=== PATIENT | male | born 1945 | race Hispanic/Latino ===

== ENCOUNTER 2016-11-25 13:56 | Observation (INO) | payer MEDICARE ==
[2016-11-25 14:04] VITALS: BMI 27.9
[2016-11-25] MEDS ORDERED: Nitroglycerin 2% Ointment Foilpak UD TOP STA (14:15)
--- NOTE | 2016-11-25 14:16 | ED PDOC ---
Arrival/HPI - General Time Seen by Provider: 11/25/16 13:57 Historian: Patient - History of Present Illness Narrative History of Present Illness (Text): 11/25/16 14:05 Robert Thompson is a 71 year old male, whose past medical history includes CAD/[place] in 1997 with stents, hypertension, and asthma, presents to the emergency department complaining of chest pain since today morning. States he started experiencing some mild chest pain whenever bending forward which eventually became constant. Reports he took 2 nitros at home for transient relief. States he developed some lightheadedness and dizziness after taking nitro, but has resolved now. States that pain recurred again on exertion, which prompted him to present to emergency department. Patient was given nitro spray en route by EMT for symptomatic relief. States pain is worsened with inspiration. Denies any fever, chills, shortness of breath, nausea, vomiting, diarrhea, urinary symptoms or any other complaints at this time. PMD: Dr. Santana Glove Turner And Former Automatic: Dr. Fish Time/Duration: Other (earlier today ) Symptom Course: Improving Severity Level: Mild Context: Home Past Medical History - Provider Review Nursing Documentation Reviewed: Yes - Cardiac Hx Pacemaker: No - Pulmonary Hx Respiratory Disorders: Yes Hx Bronchitis: Yes - Neurological Hx Paralysis: No - HEENT Hx HEENT Disorder: Yes (glasses) - Renal Hx Renal Disorder: No - Endocrine/Metabolic Hx Endocrine Disorders: No - Hematological/Oncological Hx Blood Transfusions: No Hx Blood Transfusion Reaction: No - Integumentary Hx Dermatological Disorder: No - Musculoskeletal/Rheumatological Hx Musculoskeletal Disorders: Yes (DDD, slipped disk) - Gastrointestinal Hx Gastrointestinal Disorders: Yes Hx Gastroesophageal Reflux: Yes Hx Liver Failure: (fatty liver 2003) - Genitourinary/Gynecological Hx Genitourinary Disorders: No - Psychiatric Hx Emotional Abuse: No Hx Physical Abuse: No Hx Substance Use: No - Past Surgical History Past Surgical History: No Previous - Surgical History Hx Cardiac Catheterization: Yes Hx Coronary Stent: Yes (x2) Other/Comment: nasal surgery - Anesthesia Hx Anesthesia Reactions: No Hx Malignant Hyperthermia: No - Suicidal Assessment Feels Threatened In Home Enviroment: No Family/Social History - Physician Review Nursing Documentation Reviewed: Yes Family/Social History: No Known Family HX Smoking Status: Never Smoked Hx Alcohol Use: No Hx Substance Use: No Hx Substance Use Treatment: No Allergies/Home Meds Allergies/Adverse Reactions: Allergies No Known Allergies Allergy (Verified 11/25/16 14:03) Home Medications: Home Meds Medication Instructions Recorded Confirmed Atorvastatin [Lipitor] 10 mg PO QAM 01/30/13 11/25/16 Metoprolol Succinate [Metoprolol 100 mg PO QAM 01/30/13 11/25/16 Succinate Xl] ALPRAZolam [Xanax] 1 mg PO HS PRN 11/25/16 11/25/16 Aspirin [Aspirin EC] 325 mg PO DAILY 11/25/16 11/25/16 Fluticasone/Vilanterol [Breo 0 inh INH DAILY 11/25/16 11/25/16 Ellipta 100-25 Mcg INH] Gabapentin [Neurontin] 300 mg PO BID 11/25/16 11/25/16 tiZANidine [Zanaflex] 4 mg PO DAILY 11/25/16 11/25/16 Review of Systems - Physician Review All systems were reviewed & negative as marked: Yes - Review of Systems Constitutional: Normal. absent: Fatigue, Fevers Respiratory: Normal. absent: SOB, Sputum Cardiovascular: Chest Pain. absent: Palpitations Gastrointestinal: Normal. absent: Abdominal Pain, Diarrhea, Nausea, Vomiting Neurological: Normal. absent: Headache, Dizziness Psychiatric: Normal Physical Exam Vital Signs Reviewed: Yes Vital Signs Temp Pulse Resp BP Pulse Ox 11/25/16 15:44 61 16 120/62 99 11/25/16 14:07 98.1 F 64 15 140/67 98 Temperature: Afebrile Blood Pressure: Normal Pulse: Regular Respiratory Rate: Normal Appearance: Positive for: Well-Appearing, Non-Toxic, Comfortable Pain Distress: None Mental Status: Positive for: Alert and Oriented X 3 - Systems Exam Head: Present: Atraumatic, Normocephalic Pupils: Present: PERRL Conjunctiva: Present: Normal Mouth: Present: Moist Mucous Membranes Pharnyx: Present: Normal. No: ERYTHEMA, EXUDATE, TONSILS ENLARGED Neck: Present: Normal Range of Motion Respiratory/Chest: Present: Clear to Auscultation, Good Air Exchange. No: Respiratory Distress, Accessory Muscle Use Cardiovascular: Present: Regular Rate and Rhythm, Normal S1, S2. No: Murmurs Abdomen: Present: Normal Bowel Sounds. No: Tenderness, Distention, Peritoneal Signs Back: Present: Normal Inspection Upper Extremity: Present: Normal Inspection. No: Cyanosis, Edema Lower Extremity: Present: Normal Inspection. No: Edema Neurological: Present: GCS=15, CN II-XII Intact, Speech Normal, Motor Func Grossly Intact, Normal Sensory Function Skin: Present: Warm, Dry, Normal Color. No: Rashes Psychiatric: Present: Alert, Oriented x 3, Normal Insight, Normal Concentration Medical Decision Making ED Course and Treatment: 11/25/16 14:18 Impression: A 71 year old male who presents to the emergency department complaining of chest pain. Denies any shortness of breath. Differential Diagnosis included but are not limited to: ACS vs. PE vs. muscular pain vs anxiety Plan: -- EKG -- Labs, cardiac enzymes -- CXR -- Nitro -- Urinalysis -- Reassess and disposition Progress Notes: 11/25/16 14:31 EKG interpreted by me: NSR @ 65 bpm. normal axis. normal interval. 11/25/16 16:52 CXR: nad Patient with noted history, including CAD/[place] with multiple types of pain, relieved with nitro; initial EKG is unremarkable as are CE and other labs, except elevated d-dimer. CTA of the chest was negative for PE. He took asa already today and no active pain now; given high risk history, he will need further observation on tele. Discussed with Dr. Fish for consult and Dr. Molina for pacement on the hospitalist service. - Lab Interpretations Lab Results: 11/25/16 14:10 11/25/16 14:10 Lab Results 11/25/16 14:10: Sodium 137, Potassium 4.0, Chloride 100, Carbon Dioxide 25, Anion Gap 16, BUN 16, Creatinine 0.9, Est GFR ( Amer) > 60, Est GFR (Non- Af Amer) > 60, Random Glucose 112 H, Calcium 9.1, Magnesium 2.1, Total Bilirubin 1.0, AST 36, ALT 38, Alkaline Phosphatase 81, Lactate Dehydrogenase 482, Total Creatine Kinase 80, Troponin I < 0.01, NT-Pro-B Natriuret Pep 65.0, Total Protein 7.2, Albumin 4.4, Globulin 2.7, Albumin/Globulin Ratio 1.6, Lipase 81 11/25/16 14:10: PT 11.0, INR 1.02, APTT 26.1, D-Dimer, Quantitative 0.80 H 11/25/16 14:10: WBC 7.2, RBC 4.46, Hgb 14.9, Hct 42.5, MCV 95.3, MCH 33.4, MCHC 35.1, RDW 12.9, Plt Count 174, MPV 10.1, Gran % 82.2 H, Lymph % (Auto) 9.6 L, [place] % (Auto) 7.1 H, Eos % (Auto) 0.7 L, Baso % (Auto) 0.4, Gran # 5.92, Lymph # 0.7 L, [place] # 0.5, Eos # 0.1, Baso # 0.03 - RAD Interpretation Radiology Orders: 11/25/16 14:05 CHEST PORTABLE [RAD] Stat 11/25/16 15:01 ANGIO CHEST PE PROTOCOL [CT] Stat - Medication Orders Current Medication Orders: Discontinued Medications Iodixanol (Visipaque 320 Mg/Ml 100 Ml) Confirm Administered Dose 100 ml IV .STK- MED ONE Stop: 11/25/16 15:12 Nitroglycerin (Nitro-Bid 2% Oint) 1 ea TOP STAT STA Stop: 11/25/16 14:16 Last Admin: 11/25/16 14:42 Dose: 1 ea - Scribe Statement The provider has reviewed the documentation as recorded by the Kacey Hebert Provider Attestation: All medical record entries made by the Garimaibparag were at my direction and personally dictated by me. I have reviewed the chart and agree that the record accurately reflects my personal performance of the history, physical exam, medical decision making, and the department course for this patient. I have also personally directed, reviewed, and agree with the discharge instructions and disposition. Disposition/Present on Arrival - Present on Arrival Any Indicators Present on Arrival: No History of DVT/PE: No History of Uncontrolled Diabetes: No Urinary Catheter: No History Surgical Site Infection Following: None - Disposition Have Diagnosis and Disposition been Completed?: Yes Diagnosis: Chest pain Disposition: HOSPITALIZED Disposition Time: 15:50 Patient Plan: Observation, Telemetry Condition: FAIR Discharge Instructions (ExitCare): Chest Pain (ED) Referrals: Chau Santana MD [Primary Care Provider] - Follow up with primary
[2016-11-25 14:47] LABS: BASO # 0.03 K/mm3 (0.0-2.0); BASO % 0.4 % (0.0-3.0); EOS # 0.1 (0.0-0.7); EOS % 0.7 % (1.5-5.0); GRAN # 5.92 (1.4-6.5); GRAN % 82.2 % (50.0-68.0); HEMOGLOBIN 14.9 g/dL (14.0-18.0); LYMPH # 0.7 (1.2-3.4); LYMPH % 9.6 % (22.0-35.0); MEAN CELL VOLUME 95.3 fl (80.0-105.0); MEAN CORPUSCULAR HEMOGLOBIN 33.4 pg (25.0-35.0); MEAN CORPUSCULAR HGB CONC 35.1 g/dl (31.0-37.0); MEAN PLATELET VOLUME 10.1 fl (7.0-11.0); MONO # 0.5 (0.1-0.6); MONO % 7.1 % (1.0-6.0); PLATELET COUNT 174 10^3/uL (120.0-450.0); RBC 4.46 10^6/uL (3.5-6.1); RED CELL DISTRIBUTION WIDTH 12.9 % (11.5-14.5); WHITE BLOOD COUNT 7.2 10^3/ul (4.5-11.0)
--- NOTE | 2016-11-25 14:52 | RAD ---
HISTORY: chest pain COMPARISON: 03/31/2016 FINDINGS: LUNGS: No active pulmonary disease. PLEURA: No significant pleural effusion identified, no pneumothorax apparent. CARDIOVASCULAR: Mild cardiomegaly -similar-appearing OSSEOUS STRUCTURES: Diffuse thoracic spondylosis VISUALIZED UPPER ABDOMEN: Normal. OTHER FINDINGS: None. IMPRESSION: No interval active disease. Mild cardiomegaly as before
[2016-11-25 14:56] LABS: ALB/GLOB RATIO 1.6 (1.1-1.8); ALBUMIN 4.4 g/dL (3.0-4.8); ALT/SGPT 38 U/L (7-56); AST/SGOT 36 U/L (15-59); BLOOD UREA NITROGEN 16 mg/dL (7-21); CALCIUM 9.1 mg/dL (8.4-10.5); GFR AFRICAN-AMERICAN > 60; GFR NON-AFRICAN AMERICAN > 60; LIPASE 81 U/L (23-300); MAGNESIUM 2.1 mg/dL (1.7-2.2)
[2016-11-25 15:00] LABS: D DIMER 0.8 mg/L FEU (0-0.50); INR 1.02 (0.93-1.08); PARTIAL THROMBOPLASTIN TIME 26.1 Seconds (23.7-30.8)
[2016-11-25 15:09] LABS: TROPONIN I < 0.01 ng/mL
[2016-11-25] MEDS ORDERED: Iodixanol 320 MG/ML 100 ML BOTTLE IV ONE (15:11)
[2016-11-25 15:45] VITALS: O2SAT 99
--- NOTE | 2016-11-25 17:23 | CT ---
PROCEDURE: CT Chest with contrast (Pulmonary Angiogram) HISTORY: chest pain - r/o PE COMPARISON: None available. TECHNIQUE: Axial computed tomography images were obtained of the chest in the pulmonary arterial phase of enhancement. Coronal and sagittal reformatted images were created and reviewed. Intravenous contrast dose: 100 cc of Visipaque Radiation dose: Total exam DLP = 769 mGy-cm. This CT exam was performed using one or more of the following dose reduction techniques: Automated exposure control, adjustment of the mA and/or kV according to patient size, and/or use of iterative reconstruction technique. FINDINGS: PULMONARY ARTERIES: Unremarkable. No pulmonary embolism. AORTA: No acute findings. No thoracic aortic aneurysm. LUNGS: Unremarkable. No nodule, mass or pulmonary consolidation. PLEURAL SPACES: Unremarkable. No effusion or pneuomothorax. HEART: Unremarkable. No cardiomegaly. No significant pericardial effusion. LYMPH NODES: No lymphadenopathy. BONES, CHEST WALL: Unremarkable. No fracture or destructive lesion OTHER FINDINGS: Unremarkable. IMPRESSION: Unremarkable CT pulmonary angiogram. No pulmonary embolus.
--- NOTE | 2016-11-25 18:21 | CP.PCM.HP ---
History of Present Illness - History of Present Illness History of Present Illness: chest pain. Patient seen and examined in ER. Patient's by the bedside. patient is alert, awake and oriented. Currently not in any acute distress. Patient is a 71-year-old with a past medical history of coronary artery disease , stent placement in 1997, asthma/COPD, musculoskeletal disorder is admitted with chest pain. Pain is located in the mid chest area. the pain started around 10:00 this morning while he was bending down. Pain is also exacerbated by climbing stairs. Non-radiating. Not associated with nausea, vomiting, palpitation. Denies any fevers, chills. Denies any cough, shortness of breath. Denies any abdominal discomfort. Denies any urinary, bowel complaints. Denies any leg edema. The patient Nitroglycerin tablet this morning with some relief. Pain is on and off. The patient was seen by ornamental metal erector apprentice Dr. Orellana yesterday. The patient had exertional pain about few weeks ago. The patient took Nitroglycerin tablet few weeks ago. Past medical history; Stent placement in 1997 Back spasms Hypertension Asthma/COPD History of transient global amnesia 4 years ago Medications; reviewed Allergies; none Social history; denies history of smoking Denies alcohol abuse denies drug abuse Past surgical history; Sinus surgery DNS surgery in 2014 patient ambulates at home. Independent with daily activities. PMD; Dr. parkinson. Cardiology; Dr. Orellana Pulmonary; Dr. Garcia Pain management; Dr. Robert Rosado Present on Admission - Present on Admission Any Indicators Present on Admission: No History of DVT/PE: No History of Uncontrolled Diabetes: No Urinary Catheter: No Decubitus Ulcer Present: No Review of Systems - Constitutional Constitutional: absent: Chills - EENT Eyes: absent: Blurred Vision Nose/Mouth/Throat: absent: Nasal Congestion - Cardiovascular Cardiovascular: Chest Pain, Chest Pain with Activity. absent: Edema - Respiratory Respiratory: absent: Cough, Dyspnea, Dyspnea on Exertion - Gastrointestinal Gastrointestinal: absent: Abdominal Pain, Nausea, Vomiting - Genitourinary Genitourinary: absent: Change in Urinary Stream - Musculoskeletal Musculoskeletal: absent: Abnormal Gait - Neurological Neurological: absent: Abnormal Gait, Confusion, Focal Weakness, Weakness - Psychiatric Psychiatric: absent: Anxiety, Depression - Hematologic/Lymphatic Hematologic: absent: Easy Bleeding, Easy Bruising Past Patient History - Past Social History Smoking Status: Never Smoked - CARDIAC Hx Pacemaker: No - PULMONARY Hx Respiratory Disorders: Yes Hx Bronchitis: Yes - NEUROLOGICAL Hx Paralysis: No - HEENT Hx HEENT Problems: Yes (glasses) - RENAL Hx Chronic Kidney Disease: No - ENDOCRINE/METABOLIC Hx Endocrine Disorders: No - HEMATOLOGICAL/ONCOLOGICAL Hx Blood Transfusions: No Hx Blood Transfusion Reaction: No - INTEGUMENTARY Hx Dermatological Problems: No - MUSCULOSKELETAL/RHEUMATOLOGICAL Hx Musculoskeletal Disorders: Yes (DDD, slipped disk) - GASTROINTESTINAL Hx Gastrointestinal Disorders: Yes Hx Gastroesophageal Reflux: Yes Hx Liver Failure: (fatty liver 2003) - GENITOURINARY/GYNECOLOGICAL Hx Genitourinary Disorders: No - PSYCHIATRIC Hx Emotional Abuse: No Hx Physical Abuse: No Hx Substance Use: No - SURGICAL HISTORY Hx Cardiac Catheterization: Yes Hx Coronary Stent: Yes (x2) Other/Comment: nasal surgery - ANESTHESIA Hx Anesthesia Reactions: No Hx Malignant Hyperthermia: No Meds Allergies/Adverse Reactions: Allergies Allergy/AdvReac Type Severity Reaction Status Date / Time No Known Allergies Allergy Verified 11/25/16 14:03 Physical Exam - Constitutional Appears: Well, Non-toxic - Head Exam Head Exam: NORMAL INSPECTION - Eye Exam Eye Exam: Normal appearance - ENT Exam ENT Exam: Mucous Membranes Moist - Respiratory Exam Respiratory Exam: Clear to Auscultation Bilateral, NORMAL BREATHING PATTERN - Cardiovascular Exam Cardiovascular Exam: REGULAR RHYTHM - GI/Abdominal Exam GI & Abdominal Exam: Normal Bowel Sounds, Soft. absent: Rebound, Rigid, Tenderness - Extremities Exam Extremities exam: Negative for: pedal edema - Back Exam Back exam: absent: CVA tenderness (L), CVA tenderness (R) - Neurological Exam Neurological exam: Alert, Oriented x3 - Psychiatric Exam Psychiatric exam: Normal Affect - Skin Skin Exam: Normal Color Results - Vital Signs Recent Vital Signs: Last Vital Signs Temp 98.1 F 11/25/16 14:07 Pulse 64 11/25/16 17:29 Resp 18 11/25/16 17:29 BP 126/88 11/25/16 17:29 Pulse Ox 99 11/25/16 17:29 - Labs Result Diagrams: 11/26/16 05:30 11/26/16 06:20 Assessment & Plan - Assessment and Plan (Free Text) Assessment: 1. Patient is a 71-r-old male admitted with chest pain since this morning. Admit to telemetry. EKG showed normal sinus rhythm. Cardiac enzymes 1 negative. cardiac enzymes 3 ordered. Patient already took aspirin, metoprolol, Lipitor this morning. Currently pain free. History of coronary disease and stent placement in 1997. We will get cardiology evaluation with Dr. Orellana. 2. Back pain/spasms; continue Neurontin, Zanaflex. 3. GI/DVT prophylaxis. 4.CT angiogram is negative for PE. Monitor closely in telemetry. Will follow-up with cardiology for further plan. the diagnosis and treatment plan discussed with patient in detail. upon discharge the patient will follow up with PMD DR. Parkinson.
--- NOTE | 2016-11-25 18:28 | CARD ---
APPROVED REPORT EKG Measurement Heart [id number] <Conclusion> Normal sinus rhythm Normal ECG
[2016-11-25] MEDS: Aspirin 325 mg EC Tablets PO SCH (18:51)
[2016-11-25 22:07] LABS: TROPONIN I < 0.01 ng/mL
[2016-11-25] MEDS ORDERED: Pneumococcal 23-Valent Vaccine IM ONE (22:45)
[2016-11-26 05:49] VITALS: RESP 18; TEMP 98
[2016-11-26 06:15] LABS: HEMOGLOBIN 14.3 g/dL (14.0-18.0); MEAN CELL VOLUME 96.1 fl (80.0-105.0); MEAN CORPUSCULAR HGB CONC 34.4 g/dl (31.0-37.0); MEAN PLATELET VOLUME 9.8 fl (7.0-11.0); RBC 4.33 10^6/uL (3.5-6.1); RED CELL DISTRIBUTION WIDTH 13.1 % (11.5-14.5)
[2016-11-26 06:44] LABS: BLOOD UREA NITROGEN 12 mg/dL (7-21); CALCIUM 8.9 mg/dL (8.4-10.5); GFR AFRICAN-AMERICAN > 60; GFR NON-AFRICAN AMERICAN > 60
[2016-11-26 06:59] LABS: TROPONIN I < 0.01 ng/mL
[2016-11-26] MEDS: Aspirin 325 mg EC Tablets PO SCH (09:56)
[2016-11-26 09:57] VITALS: BP 129/69; PULSE 72
[2016-11-26] MEDS ORDERED: Enoxaparin 40 mg Syringe SC SCH (10:00)
[2016-11-26] MEDS ORDERED: Metoprolol Succinate 100 mg XL Tab PO SCH (10:00)
--- NOTE | 2016-11-26 13:02 | CP.PCM.DIS ---
<MATHEW ORTEGA - Last Filed: 11/26/16 12:52> Provider - Provider Date of Admission: 11/25/16 15:53 Attending physician: Arturo Molina MD Primary care physician: Chau Santana MD Consults: Cardio: Polina/Jai Time Spent in preparation of Discharge (in minutes): 45 Hospital Course - Lab Results Lab Results: Most Recent Lab Values WBC 7.0 10^3/ul (4.5-11.0) 11/26/16 05:30 RBC 4.33 10^6/uL (3.5-6.1) 11/26/16 05:30 Hgb 14.3 g/dL (14.0-18.0) 11/26/16 05:30 Hct 41.6 % (42.0-52.0) L 11/26/16 05:30 MCV 96.1 fl (80.0-105.0) 11/26/16 05:30 MCH 33.0 pg (25.0-35.0) 11/26/16 05:30 MCHC 34.4 g/dl (31.0-37.0) 11/26/16 05:30 RDW 13.1 % (11.5-14.5) 11/26/16 05:30 Plt Count 165 10^3/uL (120.0-450.0) 11/26/16 05:30 MPV 9.8 fl (7.0-11.0) 11/26/16 05:30 Gran % 82.2 % (50.0-68.0) H 11/25/16 14:10 Lymph % (Auto) 9.6 % (22.0-35.0) L 11/25/16 14:10 [place] % (Auto) 7.1 % (1.0-6.0) H 11/25/16 14:10 Eos % (Auto) 0.7 % (1.5-5.0) L 11/25/16 14:10 Baso % (Auto) 0.4 % (0.0-3.0) 11/25/16 14:10 Gran # 5.92 (1.4-6.5) 11/25/16 14:10 Lymph # 0.7 (1.2-3.4) L 11/25/16 14:10 [place] # 0.5 (0.1-0.6) 11/25/16 14:10 Eos # 0.1 (0.0-0.7) 11/25/16 14:10 Baso # 0.03 K/mm3 (0.0-2.0) 11/25/16 14:10 PT 11.0 Seconds (9.9-11.8) 11/25/16 14:10 INR 1.02 (0.93-1.08) 11/25/16 14:10 APTT 26.1 Seconds (23.7-30.8) 11/25/16 14:10 D-Dimer, Quantitative 0.80 mg/L FEU (0-0.50) H 11/25/16 14:10 Sodium 140 mmol/L (132-148) 11/26/16 06:20 Potassium 3.9 mmol/L (3.6-5.0) 11/26/16 06:20 Chloride 104 mmol/L (98-107) 11/26/16 06:20 Carbon Dioxide 26 mmol/L (21-33) 11/26/16 06:20 Anion Gap 14 (10-20) 11/26/16 06:20 BUN 12 mg/dL (7-21) 11/26/16 06:20 Creatinine 0.8 mg/dL (0.5-1.4) 11/26/16 06:20 Est GFR ( Amer) > 60 11/26/16 06:20 Est GFR (Non-Af Amer) > 60 11/26/16 06:20 Random Glucose 92 mg/dL (70-110) 11/26/16 06:20 Calcium 8.9 mg/dL (8.4-10.5) 11/26/16 06:20 Magnesium 2.1 mg/dL (1.7-2.2) 11/25/16 14:10 Total Bilirubin 1.0 mg/dL (0.2-1.3) 11/25/16 14:10 AST 36 U/L (15-59) 11/25/16 14:10 ALT 38 U/L (7-56) 11/25/16 14:10 Alkaline Phosphatase 81 U/L (38-133) 11/25/16 14:10 Lactate Dehydrogenase 335 U/L (333-699) 11/26/16 06:20 Total Creatine Kinase 53 U/L (35-230) 11/26/16 06:20 Troponin I < 0.01 ng/mL 11/26/16 06:20 NT-Pro-B Natriuret Pep 65.0 pg/mL (0-450) 11/25/16 14:10 Total Protein 7.2 g/dL (5.8-8.3) 11/25/16 14:10 Albumin 4.4 g/dL (3.0-4.8) 11/25/16 14:10 Globulin 2.7 gm/dL 11/25/16 14:10 Albumin/Globulin Ratio 1.6 (1.1-1.8) 11/25/16 14:10 Lipase 81 U/L (23-300) 11/25/16 14:10 - Hospital Course Hospital Course: Pt is a 71 yo M with PMHx of CAD with 2 stents placed in 1997, back spasms, HTN , asthma/COPD, and global amnesia presents with cc of chest pain. In the ED, the pt was AOx3 with NAD. Pain is intermittant and located in the mid chest area. The pain started around 10:00 this morning while he was bending down. Pain is also exacerbated by climbing stairs. Non-radiating. Not associated with nausea, vomiting, palpitation. Pt denied any fevers, chills, cough, shortness of breath, abdominal discomfort, urinary, bowel complaints, leg edema. The patient took Nitroglycerin tablet in the morning with some relief. In the ED, labs and imaging were obtained. Cardiac enzymes were normal. Basic labs were unremarkable except for a slightly elevated D-dimer at 0.80. CT agnio of the chest was obtained and was negative for PE. CXR was negative. Ekg showed NSR. Pt was admitted for CP to rule out ACS. Repeat troponin x 2 were negative. Cardiology was consulted and the decision was made to do a stress test as an outpatient. Pt was seen and examined at bedside today. Pt denied any acute overnight events. Pt was states that CP, which was diffuse without radiation is not present and has not been present since admission. Pt denied SOB, n/v/d, fevers, chills, abdominal pain, or vertigo. Pt discharged on his home medications and will undergo stress test with Dr. Vergara as an out-patient today. Discharge Exam - Head Exam Head Exam: NORMAL INSPECTION - Eye Exam Eye Exam: EOMI, PERRL - ENT Exam ENT Exam: Mucous Membranes Moist - Neck Exam Neck exam: Full Rom - Respiratory Exam Respiratory Exam: Clear to PA & Lateral. absent: Rales, Rhonchi, Wheezes - Cardiovascular Exam Cardiovascular Exam: RRR. absent: Diastolic murmur, Gallop, Rubs, Systolic Murmur - GI/Abdominal Exam GI & Abdominal Exam: Soft. absent: Distended, Guarding, Rebound, Rigid, Tenderness - Extremities Exam Extremities exam: normal inspection - Neurological Exam Neurological exam: Alert, CN II-XII Intact, Oriented x3 - Psychiatric Exam Psychiatric exam: Normal Affect, Normal Mood - Skin Skin Exam: Dry, Intact, Normal Color, Warm Discharge Plan - Follow Up Plan Condition: FAIR Disposition: HOME/ ROUTINE Instructions: Cardiac Stress Test (GEN), Chest Pain (DC), Chest Pain (GEN) Additional Instructions: - Follow up with Dr. Vergara for out patient stress test - Follow up with PMD within 1 week - Return to ED if chest pain persists or worsens - Take medications as prescribed Referrals: Charles Vergara MD [Staff Provider] - Chau Santana MD [Primary Care Provider] - <Arturo Molina - Last Filed: 11/26/16 13:58> Provider - Provider Date of Admission: 11/25/16 15:53 Attending physician: Arturo Molina MD Primary care physician: Chau Santana MD Hospital Course - Lab Results Lab Results: Most Recent Lab Values WBC 7.0 10^3/ul (4.5-11.0) 11/26/16 05:30 RBC 4.33 10^6/uL (3.5-6.1) 11/26/16 05:30 Hgb 14.3 g/dL (14.0-18.0) 11/26/16 05:30 Hct 41.6 % (42.0-52.0) L 11/26/16 05:30 MCV 96.1 fl (80.0-105.0) 11/26/16 05:30 MCH 33.0 pg (25.0-35.0) 11/26/16 05:30 MCHC 34.4 g/dl (31.0-37.0) 11/26/16 05:30 RDW 13.1 % (11.5-14.5) 11/26/16 05:30 Plt Count 165 10^3/uL (120.0-450.0) 11/26/16 05:30 MPV 9.8 fl (7.0-11.0) 11/26/16 05:30 Gran % 82.2 % (50.0-68.0) H 11/25/16 14:10 Lymph % (Auto) 9.6 % (22.0-35.0) L 11/25/16 14:10 [place] % (Auto) 7.1 % (1.0-6.0) H 11/25/16 14:10 Eos % (Auto) 0.7 % (1.5-5.0) L 11/25/16 14:10 Baso % (Auto) 0.4 % (0.0-3.0) 11/25/16 14:10 Gran # 5.92 (1.4-6.5) 11/25/16 14:10 Lymph # 0.7 (1.2-3.4) L 11/25/16 14:10 [place] # 0.5 (0.1-0.6) 11/25/16 14:10 Eos # 0.1 (0.0-0.7) 11/25/16 14:10 Baso # 0.03 K/mm3 (0.0-2.0) 11/25/16 14:10 PT 11.0 Seconds (9.9-11.8) 11/25/16 14:10 INR 1.02 (0.93-1.08) 11/25/16 14:10 APTT 26.1 Seconds (23.7-30.8) 11/25/16 14:10 D-Dimer, Quantitative 0.80 mg/L FEU (0-0.50) H 11/25/16 14:10 Sodium 140 mmol/L (132-148) 11/26/16 06:20 Potassium 3.9 mmol/L (3.6-5.0) 11/26/16 06:20 Chloride 104 mmol/L (98-107) 11/26/16 06:20 Carbon Dioxide 26 mmol/L (21-33) 11/26/16 06:20 Anion Gap 14 (10-20) 11/26/16 06:20 BUN 12 mg/dL (7-21) 11/26/16 06:20 Creatinine 0.8 mg/dL (0.5-1.4) 11/26/16 06:20 Est GFR ( Amer) > 60 11/26/16 06:20 Est GFR (Non-Af Amer) > 60 11/26/16 06:20 Random Glucose 92 mg/dL (70-110) 11/26/16 06:20 Calcium 8.9 mg/dL (8.4-10.5) 11/26/16 06:20 Magnesium 2.1 mg/dL (1.7-2.2) 11/25/16 14:10 Total Bilirubin 1.0 mg/dL (0.2-1.3) 11/25/16 14:10 AST 36 U/L (15-59) 11/25/16 14:10 ALT 38 U/L (7-56) 11/25/16 14:10 Alkaline Phosphatase 81 U/L (38-133) 11/25/16 14:10 Lactate Dehydrogenase 335 U/L (333-699) 11/26/16 06:20 Total Creatine Kinase 53 U/L (35-230) 11/26/16 06:20 Troponin I < 0.01 ng/mL 11/26/16 06:20 NT-Pro-B Natriuret Pep 65.0 pg/mL (0-450) 11/25/16 14:10 Total Protein 7.2 g/dL (5.8-8.3) 11/25/16 14:10 Albumin 4.4 g/dL (3.0-4.8) 11/25/16 14:10 Globulin 2.7 gm/dL 11/25/16 14:10 Albumin/Globulin Ratio 1.6 (1.1-1.8) 11/25/16 14:10 Lipase 81 U/L (23-300) 11/25/16 14:10 Attending/Attestation - Attestation I have personally seen and examined this patient.: Yes I have fully participated in the care of the patient.: Yes I have reviewed all pertinent clinical information, including history, physical exam and plan: Yes Notes (Text): 11/26/16 13:56 1. Patient is a 71-r-old male admitted with chest pain. Cardiac enzymes negative. patient was evaluated by parcel post truck driver Dr. Vergara. Continue aspirin, beta kodi and Lipitor. 2. Back pain/spasms; continue Neurontin, Zanaflex. nothing by mouth past breakfast. Patient will get stress test in DR. Vergara's office this afternoon as planned. the diagnosis and treatment plan discussed with patient in detail. upon discharge the patient will follow up with PMD DR. Santana. diagnosis; Chest pain History of coronary artery disease/stent placement Hypertension
--- NOTE | 2016-11-26 14:56 | CON ---
DATE: 11/26/2016 INDICATIONS: Chest pain. HISTORY OF PRESENT ILLNESS: This is a 71-year-old male known to our practice, admitted yesterday with chest discomfort. He has been having chest pain on and off for couple of weeks, recently seen by Dr. Fish in the office. A stress test was planned. Yesterday, he experienced recurring chest pain, which began with him bending over. At one point, he took one and then a second nitroglycerin and felt dizzy. When chest continued, he came to the emergency room. He was admitted to telemetry. EKG was benign. Three sets of troponins are negative. A CT angiogram was negative as well. This morning there is no chest pain. He denies orthopnea, PND, syncope, presyncope, lightheadedness, dizziness, vertigo, palpations, edema, claudication, fever, chills, cough, sputum production, hemoptysis, abdominal pain, nausea, vomiting, diarrhea, constipation, or melena. PAST MEDICAL HISTORY: Notable for coronary artery disease, remote myocardial infarction with an LAD stent in 1997. He underwent a cardiac catheterization in 2012, which demonstrated moderate coronary disease and normal left ventricular function with a patent LAD stent. He has a history of hypertension, hyperlipidemia, asthma, GERD, discogenic disease, cerebrovascular disease, history of global amnesia, and back pains. There is no history of congestive heart failure, rheumatic fever, diabetes, arrhythmia, stroke, and gout. MEDICATIONS AT THE TIME OF ADMISSION: Include aspirin, Breo Ellipta, Lipitor, metoprolol, Neurontin, Xanax, and Zanaflex. ALLERGIES: THERE ARE NO MEDICATION ALLERGIES. SOCIAL HISTORY: He lives at home with his son. He does not smoke. He does not drink alcohol. He is a ambulatory. FAMILY HISTORY: Noncontributory. REVIEW OF SYSTEMS: Ten point review of systems is otherwise unremarkable except as noted above. PHYSICAL EXAMINATION: GENERAL: He is a well-developed male, lying in bed on telemetry in no acute distress. VITAL SIGNS: Notable for sinus rhythm at 67 beats per minute. He is afebrile. Blood pressure 124/71, respirations 18 to 20, and O2 saturation 98% to 99% on room air. HEENT: Reveals no neck vein distention, thyromegaly, carotid bruits. Mucous membranes moist. Conjunctivae pink. NECK: Supple. LUNGS: Mistry clear throughout. HEART: Revealed normal 1st and 2nd heart sounds. ABDOMEN: Soft. Bowel sounds present. No mass, organomegaly, tenderness, rebound, guarding, CVA tenderness, or palpable abdominal aortic aneurysm. EXTREMITIES: Revealed no cyanosis, clubbing or edema. NEUROLOGIC: Awake, alert and oriented. PSYCHIATRIC: Normal as to mood and affect. SKIN: Warm and dry. No rash or cellulitis. LABORATORY DATA AND IMAGING: A portable chest x-ray reveals no interval active disease, mild cardiomegaly. EKG demonstrates regular sinus rhythm, small inferior Q waves. No change from previous EKG. A CT scan of the chest reveals no evidence of pulmonary emboli and was an unremarkable CT pulmonary angiogram. CBC is unremarkable. PT/INR, PTT unremarkable. D-dimer is elevated at 0.8. Electrolytes, BUN, creatinine, blood sugar, liver function test, lipase, BMP all within normal limits. Three sets of cardiac enzymes are negative. IMPRESSION: Robert Thompson is a 71-year-old male with chest pains, sometimes with typical features and other times atypical. He has had more chest pain recently. A stress test gas been planned for him. There is no evidence of acute myocardial infarction by serial enzymes. His EKG was benign. His symptoms have resolved this morning. He does not have chest pain. PLAN: At this time, I have discussed his case with Dr. Fish who is more familiar with him and follows him regularly in the office. He would like to continue the plan to have an outpatient nuclear stress test which I will arrange for as soon as possible. The patient is aware that he will keep us informed if any recurrent chest pain on an outpatient basis. He will continue current medications including aspirin, metoprolol, Lipitor as well as Breo Ellipta, Neurontin, Xanax, and Zanaflex. Charles Vergara MD
== END 2016-11-26 11:16 | disposition home or self-care (01) ==
LOC: ED 13:56 → ERH 15:53 → 2RSO 18:18
PROVIDERS: ADMIT Internal Medicine; ATTEND Internal Medicine
DX: R07.9 Chest pain, unspecified (principal); I25.10 Atherosclerotic heart disease of native coronary artery without angina pectoris; I10 Essential (primary) hypertension; E78.5 Hyperlipidemia, unspecified; I25.2 Old myocardial infarction; I67.9 Cerebrovascular disease, unspecified; J44.9 Chronic obstructive pulmonary disease, unspecified; K21.9 Gastro-esophageal reflux disease without esophagitis; K76.0 Fatty (change of) liver, not elsewhere classified; Z79.82 Long term (current) use of aspirin; Z79.899 Other long term (current) drug therapy; Z95.5 Presence of coronary angioplasty implant and graft; J45.909 Unspecified asthma, uncomplicated; M51.36 Other intervertebral disc degeneration, lumbar region; R40.2412 Glasgow coma scale score 13-15, at arrival to emergency department; M62.830 Muscle spasm of back
CPT/HCPCS: 36415; 71010; 71275; 80048; 80053; 82550; 83615; 83690; 83735; 83880; 84484; 85025; 85027; 85378; 85610; 85730; 93005; 99285; G0378; Q9967

== ENCOUNTER 2017-05-06 10:29 | Observation (INO) | payer MEDICARE ==
[2017-05-06 10:30] VITALS: BMI 27.8
[2017-05-06] MEDS ORDERED: Nitroglycerin 2% Ointment Foilpak UD TOP STA (10:55)
--- NOTE | 2017-05-06 11:17 | ED PDOC ---
Arrival/HPI - General Chief Complaint: Chest Pain Time Seen by Provider: 05/06/17 10:55 Historian: Patient - History of Present Illness Narrative History of Present Illness (Text): 05/06/17 15:32 pt p/w ~ 1 week onset of epigastric/substernal burning/discomfort, waxing and waning, had seen his GI doctor 4 days ago and was prescribed Ranitidine without improvement of pt's symptoms; pt states since last night, awakening today, noted diffuse chest pain/pressure, at most pain was 7/10; no pain radiated to arms/fingers, no fever/chills/sweats, no sob/palpitations, no abd pain, no n/v, no numbness/tingling, no urinary/bowel changes, no fall/trauma/sick contact, no travel; pt denied other complaints; pt is here for further eval. pt denied lightheadedness pt denied loc pt last Cards evaluation was ~ 2months ago, had outpt stress tests and was told it was ok pt with 2 cardiac stents Time/Duration: 1 week Symptom Onset: Gradual Symptom Course: Worsening Quality: Tightness, Cramping Severity Level: 7, Severe Activities at Onset: Rest Context: Home Past Medical History - Provider Review Nursing Documentation Reviewed: Yes - Travel History Have you recently traveled outside [place] w/in the past 3 mons?: No - Past History Past History: No Previous - Infectious Disease Hx of Infectious Diseases: None - Cardiac Hx Pacemaker: No - Pulmonary Hx Respiratory Disorders: Yes Hx Bronchitis: Yes - Neurological Hx Paralysis: No - HEENT Hx HEENT Disorder: Yes (glasses) - Renal Hx Renal Disorder: No - Endocrine/Metabolic Hx Endocrine Disorders: No - Hematological/Oncological Hx Blood Transfusions: No Hx Blood Transfusion Reaction: No - Integumentary Hx Dermatological Disorder: No - Musculoskeletal/Rheumatological Hx Musculoskeletal Disorders: Yes (DDD, slipped disk) - Gastrointestinal Hx Gastrointestinal Disorders: Yes Hx Gastroesophageal Reflux: Yes Hx Liver Failure: (fatty liver 2003) - Genitourinary/Gynecological Hx Genitourinary Disorders: No - Psychiatric Hx Emotional Abuse: No Hx Physical Abuse: No Hx Substance Use: No - Past Surgical History Past Surgical History: No Previous - Surgical History Hx Cardiac Catheterization: Yes Hx Coronary Stent: Yes (x2) Other/Comment: nasal surgery - Anesthesia Hx Anesthesia Reactions: No Hx Malignant Hyperthermia: No - Suicidal Assessment Feels Threatened In Home Enviroment: No Family/Social History - Physician Review Nursing Documentation Reviewed: Yes Family/Social History: No Known Family HX Smoking Status: Never Smoked Hx Alcohol Use: No Hx Substance Use: No Hx Substance Use Treatment: No Allergies/Home Meds Allergies/Adverse Reactions: Allergies No Known Allergies Allergy (Verified 05/06/17 14:12) Home Medications: Home Meds Medication Instructions Recorded Confirmed Atorvastatin [Lipitor] 10 mg PO QAM 01/30/13 02/09/17 Metoprolol Succinate 100 mg PO QAM 01/30/13 02/09/17 ALPRAZolam [Xanax] 1 mg PO HS PRN 11/25/16 02/09/17 Aspirin [Aspirin EC] 325 mg PO DAILY 11/25/16 02/09/17 Fluticasone/Vilanterol [Breo 0 inh INH DAILY 11/25/16 02/09/17 Ellipta 100-25 Mcg INH] Gabapentin [Neurontin] 300 mg PO BID 11/25/16 02/09/17 tiZANidine [Zanaflex] 4 mg PO QPM 11/25/16 02/09/17 Ranitidine HCl [Sunmark Acid 150 mg PO BID 02/09/17 02/09/17 Home Health Care Provider] Review of Systems - Review of Systems Constitutional: Normal Eyes: Normal ENT: Normal Respiratory: Normal Cardiovascular: Chest Pain Gastrointestinal: Normal Genitourinary Male: Normal Musculoskeletal: Normal Skin: Normal Neurological: Normal Endocrine: Normal Hemo/Lymphatic: Normal Psychiatric: Normal Physical Exam Vital Signs Reviewed: Yes Vital Signs Pulse Pulse Resp BP Pulse Ox 05/06/17 15:00 56 L 16 117/63 95 05/06/17 12:49 62 17 122/67 94 L 05/06/17 11:59 68 17 130/81 98 05/06/17 10:47 64 18 132/76 97 05/06/17 10:45 66 05/06/17 10:41 63 18 132/76 97 Temperature: Afebrile Blood Pressure: Normal Pulse: Regular Respiratory Rate: Normal Appearance: Positive for: Well-Appearing, Other (uncomfortable, alert/awake, GCS = 15, oriented x 3, mild distress due to intermittent pain, follows comands with ease, cooperative) Pain Distress: Mild Mental Status: Positive for: Alert and Oriented X 3 - Systems Exam Head: Present: Atraumatic, Normocephalic Pupils: Present: PERRL Extroacular Muscles: Present: EOMI Conjunctiva: Present: Normal Ears: Present: Normal Mouth: Present: Moist Mucous Membranes, Normal Teeth Pharnyx: Present: Normal Nose (External): Present: Atraumatic Nose (Internal): Present: Normal Inspection Neck: Present: Normal Range of Motion, Trachea Midline. No: MIDLINE TENDERNESS Respiratory/Chest: Present: Clear to Auscultation, Good Air Exchange. No: Accessory Muscle Use Cardiovascular: Present: Regular Rate and Rhythm, Normal S1, S2, Other (no crepitus, no reproducible tenderness noted on exam) Abdomen: Present: Normal Bowel Sounds, Other (well nourished male, no focal tenderness, no masses/rebound/guarding/rigidity, no quintanilla's sign, no mcburney' s point tenderness) Back: Present: Normal Inspection. No: Midline Tenderness Upper Extremity: Present: Normal Inspection, Normal ROM, NORMAL PULSES, Neurovascularly Intact, Capillary Refill < 2s Lower Extremity: Present: Normal Inspection, NORMAL PULSES, Normal ROM, Neurovascularly Intact. No: Akin's Sign Neurological: Present: GCS=15, CN II-XII Intact, Speech Normal Skin: Present: Warm, Other (cap refill < 1sec, no ulcerations, no petechiae, no rashes) Psychiatric: Present: Alert, Oriented x 3, Normal Insight, Normal Concentration Medical Decision Making ED Course and Treatment: Impression: chest pain, r/o acs Plan: chest pain -- EKG -- Chest X-ray -- Labs -- Urinalysis -- Nasal Cannula O2 -- Nitroglycerin -- Reassess and disposition Prior Visits: Notes and results from previous visits were reviewed. Patient was last seen in the emergency department on 11/25/2016 for chest pain. Patient was admitted under telemetry observation. Progress Notes: 05/06/17 11:[address] Orellana, patient's occupational health physician, whom agrees with emergency department management and treatment. Requests to admit patient under telemetry observation under medicine, and will be seeing patient. 05/06/2017 11:35 Chest X-ray IMPRESSION: No active pulmonary disease. Dictator: Annemarie Lee MD 05/06/17 12:[address] Molina (hospitalists) and has been made aware of patient's medical presentation. Agrees with admission. 05/06/17 15:40 pt with intermittent chest pain, currently comfortable, NAD pt is made aware of his medical results agrees with admission Re-evaluation Time: 13:41 Reassessment Condition: Improving,but remains with symptoms - Critical Care Critical Care Minutes: 45 minutes Critical Care Time: Excluding Proc Time Narrative Critical Care (Text): 05/06/17 15:41 critical care time: 45min, excluding procedure time, excluding time teaching residents/students/mid-level providers; including initial eval/diagnosis, diagnostic interpretation, re-eval, consultations, final disposition - Lab Interpretations Lab Results: 05/06/17 11:10 05/06/17 11:10 Lab Results 05/06/17 11:10: Sodium 136, Potassium 4.0, Chloride 100, Carbon Dioxide 28, Anion Gap 12, BUN 14, Creatinine 0.9, Est GFR ( Amer) > 60, Est GFR (Non- Af Amer) > 60, Random Glucose 102, Calcium 9.6, Magnesium 2.1, Total Bilirubin 0.5, AST 27, ALT 34, Alkaline Phosphatase 77, Lactate Dehydrogenase 385, Total Creatine Kinase 46, Troponin I < 0.01, NT-Pro-B Natriuret Pep 59.5, Total Protein 6.8, Albumin 3.9, Globulin 2.9, Albumin/Globulin Ratio 1.3 05/06/17 11:10: WBC 5.6, RBC 4.24, Hgb 14.1, Hct 42.6, MCV 100.5 D, MCH 33.3, MCHC 33.1, RDW 13.1, Plt Count 168, MPV 10.0, Gran % 74.0 H, Lymph % (Auto) 13.8 L, Dauphin % (Auto) 9.5 H, Eos % (Auto) 2.0, Baso % (Auto) 0.7, Gran # 4.11, Lymph # 0.8 L, Dauphin # 0.5, Eos # 0.1, Baso # 0.04 I have reviewed the lab results: Yes Interpretation: All labs normal - RAD Interpretation Radiology Orders: 05/06/17 10:56 CHEST PORTABLE [RAD] Stat FINDINGS: LUNGS: The lungs are well inflated and clear. PLEURA: No significant pleural effusion identified, no pneumothorax apparent. CARDIOVASCULAR: Normal. OSSEOUS STRUCTURES: No significant abnormalities. VISUALIZED UPPER ABDOMEN: Normal. OTHER FINDINGS: None. IMPRESSION: No active pulmonary disease. Certified Medical Dosimetrist: Radiologist - EKG Interpretation EKG Interpretation (Text): 05/06/17 15:43 NSR at 65 bpm, normal axis, no ectopy, qs in leads III/F, no st-t changes, ABNL EKG; unchanged compare with old ekg 11/201605/06/17 15:45 Interpreted by ED Physician: Yes Type: 12 lead EKG Comparison: Similar to previous EKG - Medication Orders Current Medication Orders: Al Hydrox/Mg Hydrox/Simethicone (Maalox Plus 30 Ml) 30 ml PO DAILY PRN PRN Reason: Indigestion / Heartburn Albuterol/Ipratropium (Duoneb 3 Mg/0.5 Mg (3 Ml) Ud) 3 ml IH [id number] PRN PRN Reason: Shortness of Breath Alprazolam (Xanax) 1 mg PO HS PRN; Protocol PRN Reason: Anxiety Arformoterol Tartrate (Brovana) 15 mcg IH [id number] [facility] Aspirin (Ecotrin) 325 mg PO DAILY [facility] Last Admin: 05/06/17 14:49 Dose: 325 mg Atorvastatin Calcium (Lipitor) 10 mg PO DIN [facility] Budesonide (Pulmicort Respules) 0.5 mg IH [id number] [facility] Docusate Sodium (Colace) 100 mg PO BID [facility]AC[facility] Gabapentin (Neurontin) 300 mg PO BID STACIE PRN Reason: Protocol Heparin Sodium (Porcine) (Heparin) 5,000 units SC Q12 [facility]ACIE PRN Reason: Protocol Metoprolol Succinate (Toprol Xl) 100 mg PO QAM [facility] Morphine Sulfate (Morphine) 1 mg IVP Q4H PRN PRN Reason: Pain, severe (8-10) Pantoprazole Sodium (Protonix Inj) 40 mg IVP DAILY [facility] Last Admin: 05/06/17 14:49 Dose: 40 mg IVP Administration Document 05/06/17 14:49 [email or web address] (Rec: 05/06/17 14:50 [email or web address] [id number]) Charges for Administration # of IVP Administrations 1 Tizanidine HCl (Zanaflex) 4 mg PO QPM [facility] Discontinued Medications Al Hydrox/Mg Hydrox/Simethicone (Maalox Plus 30 Ml) 30 ml PO STAT STA Stop: 05/06/17 14:16 Last Admin: 05/06/17 14:49 Dose: 30 ml Atorvastatin Calcium (Lipitor) 10 mg PO QAM [facility] Morphine Sulfate (Morphine) 1 mg IVP STAT STA Stop: 05/06/17 14:05 Last Admin: 05/06/17 14:50 Dose: 1 mg MAR Pain Assessment Document 05/06/17 14:50 [facility] (Rec: 05/06/17 14:50 [facility] [id number]) Pain Reassessment Is this a pain reassessment? No Sleep Is patient sleeping during reassessment? No Presence of Pain Presence of Pain Yes Pain Scale Used Pain Scale Used Numeric Location Pain Location Body Site Chest Description Description Constant Intensity of Pain at present 7 Pain Behavior Facial Grimacing Aggravating Factors Changing Position Alleviating Factors/Management Position Change Techniques Alleviating Factors Medication IVP Administration Document 05/06/17 14:50 [email or web address] (Rec: 05/06/17 14:50 [email or web address] [id number]) Charges for Administration # of IVP Administrations 1 Nitroglycerin (Nitro-Bid 2% Oint) 1 ea TOP STAT STA Stop: 05/06/17 10:56 Last Admin: 05/06/17 11:23 Dose: 1 ea Disposition/Present on Arrival - Present on Arrival Any Indicators Present on Arrival: No History of DVT/PE: No History of Uncontrolled Diabetes: No Urinary Catheter: No History of Decub. Ulcer: No History Surgical Site Infection Following: None - Disposition Have Diagnosis and Disposition been Completed?: Yes Diagnosis: Chest pain with moderate risk of acute coronary syndrome Disposition: HOSPITALIZED Disposition Time: 13:44 Patient Plan: Observation, Telemetry Patient Problems: Current Active Problems Problem Status Onset Chest pain with moderate risk of acute coronary syndrome Acute Condition: STABLE
--- NOTE | 2017-05-06 11:36 | RAD ---
HISTORY: chest pain COMPARISON: 11/25/2016. FINDINGS: LUNGS: The lungs are well inflated and clear. PLEURA: No significant pleural effusion identified, no pneumothorax apparent. CARDIOVASCULAR: Normal. OSSEOUS STRUCTURES: No significant abnormalities. VISUALIZED UPPER ABDOMEN: Normal. OTHER FINDINGS: None. IMPRESSION: No active pulmonary disease.
[2017-05-06 11:47] LABS: BASO # 0.04 K/mm3 (0.0-2.0); BASO % 0.7 % (0.0-3.0); EOS # 0.1 (0.0-0.7); GRAN # 4.11 (1.4-6.5); HEMOGLOBIN 14.1 g/dL (14.0-18.0); LYMPH # 0.8 (1.2-3.4); LYMPH % 13.8 % (22.0-35.0); MEAN CELL VOLUME 100.5 fl (80.0-105.0); MEAN CORPUSCULAR HEMOGLOBIN 33.3 pg (25.0-35.0); MEAN CORPUSCULAR HGB CONC 33.1 g/dl (31.0-37.0); MONO # 0.5 (0.1-0.6); MONO % 9.5 % (1.0-6.0); RBC 4.24 10^6/uL (3.5-6.1); RED CELL DISTRIBUTION WIDTH 13.1 % (11.5-14.5); WHITE BLOOD COUNT 5.6 10^3/ul (4.5-11.0)
[2017-05-06 11:59] LABS: ALB/GLOB RATIO 1.3 (1.1-1.8); ALBUMIN 3.9 g/dL (3.0-4.8); ALT/SGPT 34 U/L (7-56); AST/SGOT 27 U/L (17-59); BLOOD UREA NITROGEN 14 mg/dL (7-21); CALCIUM 9.6 mg/dL (8.4-10.5); GFR AFRICAN-AMERICAN > 60; GFR NON-AFRICAN AMERICAN > 60; MAGNESIUM 2.1 mg/dL (1.7-2.2)
[2017-05-06 12:09] LABS: B-TYPE NATRIURETIC PEPTIDE 59.5 pg/mL (0-450); TROPONIN I < 0.01 ng/mL
[2017-05-06] MEDS ORDERED: Morphine 2 mg/ml ISec IVP PRN (14:04)
[2017-05-06] MEDS ORDERED: Morphine 2 mg/ml ISec IVP STA (14:04)
[2017-05-06] MEDS ORDERED: Pantoprazole 40 mg EC Tab PO STA (14:09)
[2017-05-06] MEDS ORDERED: Albuterol-Ipratrop 3 mg / 0.5 (3 ml) UD IH PRN (14:10)
[2017-05-06] MEDS ORDERED: Alum-Mag Hydrox-Simethicone Susp (30 mL) PO PRN (14:15)
[2017-05-06] MEDS ORDERED: Alum-Mag Hydrox-Simethicone Susp (30 mL) PO STA (14:15)
[2017-05-06] MEDS: Aspirin 325 mg EC Tablets PO SCH (14:49)
--- NOTE | 2017-05-06 15:11 | CP.PCM.HP ---
<Frank Burdick - Last Filed: 05/06/17 17:05> History of Present Illness - History of Present Illness History of Present Illness: cc: chest pain Mr. Thompson is a 71yo male with a PMH of CAD s/p 2 stents in , chronic gastritis/GERD, lower back pain, HTN, HLD, TIA, asthma, transient global amnesia, anxiety/depression and arthritis who presented with chest pain x1 day. Patient states that he suffers from chronic heartburn that worsened x1 week, and that this morning, the pain is different. He describes it as a left- sided chest slight pressure (enough to know it's there but not enough to cause discomfort) not associated with food, nausea/vomiting, fevers/chills, diaphoresis, shortness of breath, recent illness, recent sick contacts or any travel. Patient states that he took a nitroglycerin at home without relief. Patient states that he follows up with Dr. Fish as outpatient and had stress test done in 11/2016 which was normal according to him. Patient states that he has 6 caths since 1997 but no more stents placed. Patient also states that he sees Dr. Brown for his gastritis however he has not been taking the medication (Ranitidine) prescribed to him regularly. Patient states that Dr. Brown was going to prescribe a new stronger medication for him (which he does not know the name of), but did not due to possible interactions with his current neuro meds (Amitriptyline and Memantine) prescribed by Dr. Mullins. Regarding his "global amnesia", pt states that in 2013, he was walking up a bridge in [place], when he spaced out and forgot where he was and got lost; he was worked up and diagnosed with TIA but that he has not had any issues since then other than some short term memory loss. Patient denies shortness of breath , fevers/chills, muscle aches, pain with breathing, reproductive pain, trouble breathing, constipation, n/v/d, abdominal pain, bowel/urinary habit changes. 12- pt ROS was reviewed and is only remarkable as noted above. PMH: Dr. Euceda Cardio: Dr. Fish GI: Dr. Brown Pulm: Dr. Garcia Neuro: Dr. Harpreet PMH: as above PSH: nasal septum and some L nostril surgery for recurrent infections Meds: Amlodipine 10mg daily, Horizant 600mg daily, Amitriptyline 10mg daily ( not taking meds prescribed by Dr. Mullins), monteleukast 10mg hs, breo-ellipta 100/325, hydrocodone/acetaminophen 7.5/325, statin 10mg daily. Confirmed by [facility]. NKDA SHx: retired refinery worker, denies tobacco/ETOH/drug use, lives at home with FHx: dad (DC @ 66) Present on Admission - Present on Admission Any Indicators Present on Admission: No Review of Systems - Review of Systems All systems: reviewed and no additional remarkable complaints except (as per HPI ) Past Patient History - Past Social History Smoking Status: Never Smoked Alcohol: None Drugs: Denies Home Situation {Lives}: With Family - CARDIAC Hx Cardiac Disorders: Yes Hx Heart Attack: Yes Hx Hypercholesterolemia: Yes Hx Hypertension: Yes Hx Pacemaker: No - PULMONARY Hx Respiratory Disorders: Yes Hx Bronchitis: Yes - NEUROLOGICAL Hx Paralysis: No Hx Transient Ischemic Attacks (TIA): Yes - HEENT Hx HEENT Problems: Yes (glasses) - RENAL Hx Chronic Kidney Disease: No - ENDOCRINE/METABOLIC Hx Endocrine Disorders: No - HEMATOLOGICAL/ONCOLOGICAL Hx Blood Transfusions: No Hx Blood Transfusion Reaction: No - INTEGUMENTARY Hx Dermatological Problems: No - MUSCULOSKELETAL/RHEUMATOLOGICAL Hx Musculoskeletal Disorders: Yes (DDD, slipped disk) Hx Arthritis: Yes Hx Back Pain: Yes Hx Degenerative Joint Disease: Yes - GASTROINTESTINAL Hx Gastrointestinal Disorders: Yes Hx Gastroesophageal Reflux: Yes Hx Liver Failure: (fatty liver 2003) - GENITOURINARY/GYNECOLOGICAL Hx Genitourinary Disorders: No - PSYCHIATRIC Hx Anxiety: Yes Hx Depression: Yes Hx Emotional Abuse: No Hx Physical Abuse: No Hx Substance Use: No - SURGICAL HISTORY Hx Cardiac Catheterization: Yes Hx Coronary Stent: Yes (x2) Other/Comment: nasal surgery - ANESTHESIA Hx Anesthesia Reactions: No Hx Malignant Hyperthermia: No Meds Allergies/Adverse Reactions: Allergies Allergy/AdvReac Type Severity Reaction Status Date / Time No Known Allergies Allergy Verified 05/06/17 14:12 Physical Exam - Constitutional Appears: Well, Non-toxic, No Acute Distress - Head Exam Head Exam: NORMAL INSPECTION - Eye Exam Eye Exam: EOMI, Normal appearance, PERRL. absent: Nystagmus - ENT Exam ENT Exam: Mucous Membranes Moist - Neck Exam Neck exam: Positive for: Normal Inspection - Respiratory Exam Respiratory Exam: Clear to Auscultation Bilateral, NORMAL BREATHING PATTERN. absent: Rales, Rhonchi, Wheezes - Cardiovascular Exam Cardiovascular Exam: RRR, +S1, +S2. absent: Systolic Murmur - GI/Abdominal Exam GI & Abdominal Exam: Normal Bowel Sounds, Soft. absent: Distended, Tenderness - Extremities Exam Extremities exam: Positive for: normal inspection. Negative for: pedal edema - Back Exam Back exam: NORMAL INSPECTION - Neurological Exam Neurological exam: Alert, Oriented x3 - Psychiatric Exam Psychiatric exam: Normal Affect, Normal Mood - Skin Skin Exam: Normal Color, Warm Results - Vital Signs Recent Vital Signs: Last Vital Signs Temp Pulse 56 L 05/06/17 15:00 Resp 16 05/06/17 15:00 BP 117/63 05/06/17 15:00 Pulse Ox 95 05/06/17 15:00 - Labs Result Diagrams: 05/06/17 11:10 05/06/17 11:10 Assessment & Plan - Assessment and Plan (Free Text) Assessment: 71yo male with a PMH of CAD s/p 2 stents in 98, chronic gastritis/GERD , lower back pain, HTN, HLD, TIA, asthma, transient global amnesia, anxiety/ depression and arthritis who presented with chest pain x1 day and a longer duration of chronic gastritis while not taking prescribed antacid medications. EKG showed NSR with no ST-Twave changes and Troponin I negative x1. Pain likely musculoskeletal in nature vs chronic gastritis, but need to rule out ACS given risk factors of overweight elderly male with + HTN and HLD history and +FHx for cardiac issues. Plan: 1. Chest pain - will need to rule out ACS - trend troponin and EKG Q6 - Cardio- Dr. Fish consulted, recs appreciated - cont ASA, Lipitor and Metoprolol - Morphine PRN - cont Neurontin from home - cont Zanaflex from home - A1C, Lipase, TSH and Lipid panel ordered 2. Hx CAD - cont ASA, Lipitor and Metoprolol 3. Chronic gastritis - cont PTX IVP - HHD - start Maalox 4. Hx asthma - Duoneb PRN - cont Pulmicort, Brovana 5. Hx anxiety - cont Xanax PRN 6. Hx HLD - cont Lipitor - lipid panel ordered 7. PPX - PTX for GI PPX - Heparin for DVT PPX Patient was seen, examined and discussed with attending, Frank Becerril PGY1 Pager # [phone] <Arturo Molina - Last Filed: 05/06/17 18:43> Results - Vital Signs Recent Vital Signs: Last Vital Signs Temp 98.6 F 05/06/17 17:23 Pulse 58 L 05/06/17 17:50 Resp 18 05/06/17 17:50 BP 121/87 05/06/17 17:23 Pulse Ox 99 05/06/17 17:50 - Labs Result Diagrams: 05/06/17 11:10 05/06/17 11:10 Labs: Laboratory Results - last 24 hr 05/06/17 05/06/17 05/06/17 15:44 15:44 17:30 Phosphorus 3.7 Magnesium 2.1 Lactate Dehydrogenase 398 Total Creatine Kinase 41 Troponin I < 0.01 Triglycerides 80 Cholesterol 150 LDL Cholesterol Direct 85 HDL Cholesterol 50 Lipase 120 TSH 3rd Generation 0.87 Urine Color Yellow Urine Appearance Clear Urine pH 7.0 Ur Specific Edgar 1.010 Urine Protein Negative Urine Glucose (UA) Negative Urine Ketones Negative Urine Blood Negative Urine Nitrate Negative Urine Bilirubin Negative Urine Urobilinogen 0.2 Ur Leukocyte Esterase Negative Attending/Attestation - Attestation I have personally seen and examined this patient.: Yes I have fully participated in the care of the patient.: Yes I have reviewed all pertinent clinical information: Yes Notes (Text): 05/06/17 18:39 attending note; Patient seen and examined with resident in ER. Patient's by the bedside. Patient is a 71 -year-old male with a PMH of coronary artery disease s/p 2 stents in , chronic gastritis/GERD, lower back pain,hypertension, hyperlipidemia, back pain, asthma, anxiety/depression and arthritis who presented with chest pain x1 day. pain is mostly across the chest. Not related to any position. No aggravating or relieving factors. Patient was recently treated with ranitidine for gastritis symptoms. EKG showed no acute ST-T changes. cardiac enzymes 1 negative. Most likely musculoskeletal pain. Needs to rule out ACS. cardiac enzymes 3 ordered. cardiology evaluation with Dr. Orellana requested. 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 anxiety; continue Xanax. Chronic musculoskeletal pain; Continue physical therapy. Follow-up with pain management Dr. Miller. Upon discharge the patient will follow-up with PMD .
[2017-05-06 16:08] LABS: LDL CHOLESTEROL 85 mg/dL (0-129)
[2017-05-06 16:09] LABS: TROPONIN I < 0.01 ng/mL
[2017-05-06 16:43] LABS: HDL CHOLESTEROL 50 mg/dL (29-60); LIPASE 120 U/L (23-300); MAGNESIUM 2.1 mg/dL (1.7-2.2)
[2017-05-06 17:44] LABS: URINE BILIRUBIN NEGATIVE (NEGATIVE); URINE BLOOD NEGATIVE (NEGATIVE); URINE GLUCOSE (UA) NEGATIVE (NEGATIVE); URINE LEUKOCYTE ESTERASE NEGATIVE Leu/uL (NEGATIVE); URINE NITRATE NEGATIVE (NEGATIVE); URINE PROTEIN NEGATIVE mg/dL (<30 mg/dL); URINE UROBILINOGEN 0.2 E.U./dL (<1 E.U./dL)
--- NOTE | 2017-05-06 17:56 | CARD ---
APPROVED REPORT EKG Measurement Heart [id number] <Conclusion> Normal sinus rhythm Inferior infarct, age undetermined Abnormal ECG
[2017-05-06 17:59] LABS: URINE APPEARANCE CLEAR (CLEAR); URINE COLOR YELLOW (YELLOW)
--- NOTE | 2017-05-06 18:20 | CARD ---
APPROVED REPORT EKG Measurement Heart [id number] <Conclusion> Normal sinus rhythm Minimal voltage criteria for LVH, may be normal variant Inferior infarct, age undetermined Abnormal ECG
[2017-05-06] MEDS ORDERED: Pneumococcal 23-Valent Vaccine IM ONE (19:11)
[2017-05-06] MEDS ORDERED: Influenza Vaccine 60 mcg/0.5 mL SYR (4YR UP) IM ONE (19:11)
[2017-05-06] MEDS: Budesonide 0.5 mg/2 ml Inhal Susp UD IH SCH (19:45)
[2017-05-06] MEDS: Arformoterol 15 mcg/2 ml Inh Sol IH SCH (19:45)
[2017-05-06 22:54] LABS: TROPONIN I < 0.01 ng/mL
[2017-05-07 01:01] VITALS: O2SAT 98
[2017-05-07] MEDS ORDERED: Pantoprazole 40 mg EC Tab PO SCH (06:00)
[2017-05-07 07:15] LABS: MEAN CELL VOLUME 101.2 fl (80.0-105.0); MEAN CORPUSCULAR HEMOGLOBIN 32.7 pg (25.0-35.0); MEAN CORPUSCULAR HGB CONC 32.3 g/dl (31.0-37.0); RBC 4.28 10^6/uL (3.5-6.1); RED CELL DISTRIBUTION WIDTH 13.2 % (11.5-14.5); WHITE BLOOD COUNT 6.1 10^3/ul (4.5-11.0)
[2017-05-07] MEDS: Arformoterol 15 mcg/2 ml Inh Sol IH SCH (07:35)
[2017-05-07] MEDS: Budesonide 0.5 mg/2 ml Inhal Susp UD IH SCH (07:35)
[2017-05-07 07:47] LABS: ALB/GLOB RATIO 1.3 (1.1-1.8); ALBUMIN 3.7 g/dL (3.0-4.8); ALT/SGPT 42 U/L (7-56); AST/SGOT 33 U/L (17-59); BLOOD UREA NITROGEN 14 mg/dL (7-21); CALCIUM 9.3 mg/dL (8.4-10.5); GFR AFRICAN-AMERICAN > 60; GFR NON-AFRICAN AMERICAN > 60
[2017-05-07] MEDS ORDERED: Metoprolol Succinate 100 mg XL Tab PO SCH (10:00)
[2017-05-07 10:29] VITALS: BP 132/69; PULSE 64; TEMP 97.8
[2017-05-07] MEDS: Aspirin 325 mg EC Tablets PO SCH (10:33)
[2017-05-07 11:43] VITALS: RESP 17
--- NOTE | 2017-05-07 13:18 | CP.PCM.DIS ---
<Frank Burdick - Last Filed: 05/07/17 21:25> Provider - Provider Date of Admission: 05/06/17 12:34 Attending physician: Arturo Molina MD Primary care physician: Chau Santana MD Time Spent in preparation of Discharge (in minutes): 40 Diagnosis - Discharge Diagnosis (1) Chest pain, rule out acute myocardial infarction Status: Acute (2) Chest pain Status: Acute (3) CAD (coronary artery disease) Status: Chronic (4) Stented coronary artery Status: Chronic (5) Gastritis Status: Chronic (6) GERD (gastroesophageal reflux disease) Status: Chronic (7) Chronic low back pain Status: Chronic (8) HTN (hypertension) Status: Chronic (9) HLD (hyperlipidemia) Status: Chronic (10) Asthma Status: Chronic (11) Anxiety Status: Chronic (12) Depression Status: Chronic (13) Arthritis Status: Chronic (14) Transient global amnesia Status: Chronic Hospital Course - Lab Results Lab Results: Most Recent Lab Values WBC 6.1 10^3/ul (4.5-11.0) 05/07/17 06:00 RBC 4.28 10^6/uL (3.5-6.1) 05/07/17 06:00 Hgb 14.0 g/dL (14.0-18.0) 05/07/17 06:00 Hct 43.3 % (42.0-52.0) 05/07/17 06:00 MCV 101.2 fl (80.0-105.0) 05/07/17 06:00 MCH 32.7 pg (25.0-35.0) 05/07/17 06:00 MCHC 32.3 g/dl (31.0-37.0) 05/07/17 06:00 RDW 13.2 % (11.5-14.5) 05/07/17 06:00 Plt Count 176 10^3/uL (120.0-450.0) 05/07/17 06:00 MPV 10.0 fl (7.0-11.0) 05/07/17 06:00 Gran % 74.0 % (50.0-68.0) H 05/06/17 11:10 Lymph % (Auto) 13.8 % (22.0-35.0) L 05/06/17 11:10 [place] % (Auto) 9.5 % (1.0-6.0) H 05/06/17 11:10 Eos % (Auto) 2.0 % (1.5-5.0) 05/06/17 11:10 Baso % (Auto) 0.7 % (0.0-3.0) 05/06/17 11:10 Gran # 4.11 (1.4-6.5) 05/06/17 11:10 Lymph # 0.8 (1.2-3.4) L 05/06/17 11:10 [place] # 0.5 (0.1-0.6) 05/06/17 11:10 Eos # 0.1 (0.0-0.7) 05/06/17 11:10 Baso # 0.04 K/mm3 (0.0-2.0) 05/06/17 11:10 Sodium 139 mmol/L (132-148) 05/07/17 06:00 Potassium 4.1 mmol/L (3.6-5.0) 05/07/17 06:00 Chloride 102 mmol/L (98-107) 05/07/17 06:00 Carbon Dioxide 28 mmol/L (21-33) 05/07/17 06:00 Anion Gap 13 (10-20) 05/07/17 06:00 BUN 14 mg/dL (7-21) 05/07/17 06:00 Creatinine 0.9 mg/dl (0.8-1.5) 05/07/17 06:00 Est GFR ( Amer) > 60 05/07/17 06:00 Est GFR (Non-Af Amer) > 60 05/07/17 06:00 Random Glucose 86 mg/dL (70-110) 05/07/17 06:00 Hemoglobin A1c 5.8 % (4.2-6.5) 05/06/17 15:44 Calcium 9.3 mg/dL (8.4-10.5) 05/07/17 06:00 Phosphorus 3.7 mg/dL (2.5-4.5) 05/06/17 15:44 Magnesium 2.1 mg/dL (1.7-2.2) 05/06/17 15:44 Total Bilirubin 0.8 mg/dL (0.2-1.3) 05/07/17 06:00 AST 33 U/L (17-59) 05/07/17 06:00 ALT 42 U/L (7-56) 05/07/17 06:00 Alkaline Phosphatase 74 U/L (38-126) 05/07/17 06:00 Lactate Dehydrogenase 481 U/L (333-699) 05/06/17 22:27 Total Creatine Kinase 42 U/L (35-230) 05/06/17 22:27 Troponin I < 0.01 ng/mL 05/06/17 22:27 NT-Pro-B Natriuret Pep 59.5 pg/mL (0-450) 05/06/17 11:10 Total Protein 6.6 g/dL (5.8-8.3) 05/07/17 06:00 Albumin 3.7 g/dL (3.0-4.8) 05/07/17 06:00 Globulin 2.9 gm/dL 05/07/17 06:00 Albumin/Globulin Ratio 1.3 (1.1-1.8) 05/07/17 06:00 Triglycerides 80 mg/dL (35-160) 05/06/17 15:44 Cholesterol 150 mg/dL (130-200) 05/06/17 15:44 LDL Cholesterol Direct 85 mg/dL (0-129) 05/06/17 15:44 HDL Cholesterol 50 mg/dL (29-60) 05/06/17 15:44 Lipase 120 U/L (23-300) 05/06/17 15:44 TSH 3rd Generation 0.87 mIU/mL (0.46-4.68) 05/06/17 15:44 Urine Color Yellow (YELLOW) 05/06/17 17:30 Urine Appearance Clear (CLEAR) 05/06/17 17:30 Urine pH 7.0 (4.7-8.0) 05/06/17 17:30 Ur Specific [place] 1.010 (1.005-1.035) 05/06/17 17:30 Urine Protein Negative mg/dL (<30 mg/dL) 05/06/17 17:30 Urine Glucose (UA) Negative mg/dL (NEGATIVE) 05/06/17 17:30 Urine Ketones Negative mg/dL (NEGATIVE) 05/06/17 17:30 Urine Blood Negative (NEGATIVE) 05/06/17 17:30 Urine Nitrate Negative (NEGATIVE) 05/06/17 17:30 Urine Bilirubin Negative (NEGATIVE) 05/06/17 17:30 Urine Urobilinogen 0.2 E.U./dL (<1 E.U./dL) 05/06/17 17:30 Ur Leukocyte Esterase Negative Avril/uL (NEGATIVE) 05/06/17 17:30 - Hospital Course Hospital Course: 71yo male with a PMH of CAD s/p 2 stents in 98, chronic gastritis/GERD , lower back pain, HTN, HLD, TIA, asthma, transient global amnesia, anxiety/ depression and arthritis who presented with chest pain x1 day. Patient states that he suffers from chronic heartburn that worsened x1 week, and that on morning of presentation, the pain is different. The patient follows Dr. Euceda (PMD) and Dr. Fish (Cardio) closely as well as GI: Dr. Brown, Pulm: Dr. Garcia, Neuro: Dr. Mullins, Pain: Dr. Rosado. Patient was supposed to be taking antacid pills prescribed by Dr. Brown but has not been compliant. Patient stated that the pain was not resolved fully by nitroglycerin that he took at home. See H&P for further details. Patient was admitted for chest pain to rule out ACS given. ANTOINETTE score was 23 at time of admission, which indicates low risk index, however, given the patient's extensive cardiac history , ACS needed to be ruled out. EKG on admission was NSR with no new ST-T wave changes; it was trended and showed no changes. Troponin I was negative throughout hospital stay. No recent cardiac studies are on chart in [facility], however , patient states that he had stress test done in 11/[address] Fish which was negative. EGD w/ biopsy in 01/2017 revealed chronic gastritis with no malignant cells. Patient is discharged with protonix, with pain attributed to likely muscle ache (As he jack states he has been doing PT more For his back pain , likely over exerting himself) vs gastritis (as he has strong significant history of it and non-compliance with his medications for it). Patient is prescribed protonix and will follow up with Dr. Euceda and Dr. Fish and Dr. Rosado. Discharge Exam - Head Exam Head Exam: NORMAL INSPECTION - Eye Exam Eye Exam: EOMI, Normal appearance - ENT Exam ENT Exam: Mucous Membranes Moist - Neck Exam Neck exam: Normal Inspection - Respiratory Exam Respiratory Exam: Clear to PA & Lateral, NORMAL BREATHING PATTERN, UNREMARKABLE - Cardiovascular Exam Cardiovascular Exam: RRR, +S1, +S2 - GI/Abdominal Exam GI & Abdominal Exam: Normal Bowel Sounds, Soft. absent: Distended, Tenderness - Extremities Exam Extremities exam: full ROM - Back Exam Back exam: NORMAL INSPECTION - Neurological Exam Neurological exam: Alert, CN II-XII Intact, Oriented x3 - Psychiatric Exam Psychiatric exam: Anxious, Normal Affect - Skin Skin Exam: Normal Color Discharge Plan - Discharge Medications Prescriptions: Pantoprazole [Protonix] 40 mg PO DAILY #10 ect - Follow Up Plan Condition: STABLE Disposition: HOME/ ROUTINE Instructions: Chest Pain (DC), Chest Pain (GEN) Additional Instructions: - please follow up with Dr. Euceda within 1 week - please follow up with Dr. Fish within 1 week - please follow up with Dr. Rosado for continued physical therapy - please continue all your home medications as prescribed - please continue your home exercises for stretching and strengthening - if you experience chest pain, shortness of breath, fevers/chills or nausea/ vomiting, please return to ER for evaluation Referrals: Rolly Fish MD [Staff Provider] - Robert Rosado MD [Staff Provider] - Chau Santana MD [Primary Care Provider] - <Arturo Molina - Last Filed: 05/08/17 14:06> Provider - Provider Date of Admission: 05/06/17 12:34 Attending physician: Arturo Molina MD Primary care physician: Chau Santana MD Hospital Course - Lab Results Lab Results: Most Recent Lab Values WBC 6.1 10^3/ul (4.5-11.0) 05/07/17 06:00 RBC 4.28 10^6/uL (3.5-6.1) 05/07/17 06:00 Hgb 14.0 g/dL (14.0-18.0) 05/07/17 06:00 Hct 43.3 % (42.0-52.0) 05/07/17 06:00 MCV 101.2 fl (80.0-105.0) 05/07/17 06:00 MCH 32.7 pg (25.0-35.0) 05/07/17 06:00 MCHC 32.3 g/dl (31.0-37.0) 05/07/17 06:00 RDW 13.2 % (11.5-14.5) 05/07/17 06:00 Plt Count 176 10^3/uL (120.0-450.0) 05/07/17 06:00 MPV 10.0 fl (7.0-11.0) 05/07/17 06:00 Gran % 74.0 % (50.0-68.0) H 05/06/17 11:10 Lymph % (Auto) 13.8 % (22.0-35.0) L 05/06/17 11:10 [place] % (Auto) 9.5 % (1.0-6.0) H 05/06/17 11:10 Eos % (Auto) 2.0 % (1.5-5.0) 05/06/17 11:10 Baso % (Auto) 0.7 % (0.0-3.0) 05/06/17 11:10 Gran # 4.11 (1.4-6.5) 05/06/17 11:10 Lymph # 0.8 (1.2-3.4) L 05/06/17 11:10 [place] # 0.5 (0.1-0.6) 05/06/17 11:10 Eos # 0.1 (0.0-0.7) 05/06/17 11:10 Baso # 0.04 K/mm3 (0.0-2.0) 05/06/17 11:10 Sodium 139 mmol/L (132-148) 05/07/17 06:00 Potassium 4.1 mmol/L (3.6-5.0) 05/07/17 06:00 Chloride 102 mmol/L (98-107) 05/07/17 06:00 Carbon Dioxide 28 mmol/L (21-33) 05/07/17 06:00 Anion Gap 13 (10-20) 05/07/17 06:00 BUN 14 mg/dL (7-21) 05/07/17 06:00 Creatinine 0.9 mg/dl (0.8-1.5) 05/07/17 06:00 Est GFR ( Amer) > 60 05/07/17 06:00 Est GFR (Non-Af Amer) > 60 05/07/17 06:00 Random Glucose 86 mg/dL (70-110) 05/07/17 06:00 Hemoglobin A1c 5.8 % (4.2-6.5) 05/06/17 15:44 Calcium 9.3 mg/dL (8.4-10.5) 05/07/17 06:00 Phosphorus 3.7 mg/dL (2.5-4.5) 05/06/17 15:44 Magnesium 2.1 mg/dL (1.7-2.2) 05/06/17 15:44 Total Bilirubin 0.8 mg/dL (0.2-1.3) 05/07/17 06:00 AST 33 U/L (17-59) 05/07/17 06:00 ALT 42 U/L (7-56) 05/07/17 06:00 Alkaline Phosphatase 74 U/L (38-126) 05/07/17 06:00 Lactate Dehydrogenase 481 U/L (333-699) 05/06/17 22:27 Total Creatine Kinase 42 U/L (35-230) 05/06/17 22:27 Troponin I < 0.01 ng/mL 05/06/17 22:27 NT-Pro-B Natriuret Pep 59.5 pg/mL (0-450) 05/06/17 11:10 Total Protein 6.6 g/dL (5.8-8.3) 05/07/17 06:00 Albumin 3.7 g/dL (3.0-4.8) 05/07/17 06:00 Globulin 2.9 gm/dL 05/07/17 06:00 Albumin/Globulin Ratio 1.3 (1.1-1.8) 05/07/17 06:00 Triglycerides 80 mg/dL (35-160) 05/06/17 15:44 Cholesterol 150 mg/dL (130-200) 05/06/17 15:44 LDL Cholesterol Direct 85 mg/dL (0-129) 05/06/17 15:44 HDL Cholesterol 50 mg/dL (29-60) 05/06/17 15:44 Lipase 120 U/L (23-300) 05/06/17 15:44 TSH 3rd Generation 0.87 mIU/mL (0.46-4.68) 05/06/17 15:44 Urine Color Yellow (YELLOW) 05/06/17 17:30 Urine Appearance Clear (CLEAR) 05/06/17 17:30 Urine pH 7.0 (4.7-8.0) 05/06/17 17:30 Ur Specific [place] 1.010 (1.005-1.035) 05/06/17 17:30 Urine Protein Negative mg/dL (<30 mg/dL) 05/06/17 17:30 Urine Glucose (UA) Negative mg/dL (NEGATIVE) 05/06/17 17:30 Urine Ketones Negative mg/dL (NEGATIVE) 05/06/17 17:30 Urine Blood Negative (NEGATIVE) 05/06/17 17:30 Urine Nitrate Negative (NEGATIVE) 05/06/17 17:30 Urine Bilirubin Negative (NEGATIVE) 05/06/17 17:30 Urine Urobilinogen 0.2 E.U./dL (<1 E.U./dL) 05/06/17 17:30 Ur Leukocyte Esterase Negative Avril/uL (NEGATIVE) 05/06/17 17:30 Attending/Attestation - Attestation I have personally seen and examined this patient.: Yes I have fully participated in the care of the patient.: Yes I have reviewed all pertinent clinical information, including history, physical exam and plan: Yes Notes (Text): 05/08/17 14:04 attending note; Patient is a 71 -year-old male with a PMH of coronary artery disease s/p 2 stents in 98, chronic gastritis/GERD, lower back pain,hypertension, hyperlipidemia, back pain, asthma, anxiety/depression and arthritis who presented with chest pain x1 day. Cardiac enzymes negative. Cardiology evaluation with Dr. Vergara appreciated. most likely musculoskeletal pain. patient is getting epidural injections from Dr. Rosado. Patient also get physical therapy as outpatient. anxiety; continue Xanax. follow-up with in 3 days. Upon discharge the patient will follow-up with PMD .
--- NOTE | 2017-05-07 13:29 | CON ---
DATE: 05/07/2017 INDICATION: Chest pain. HISTORY OF PRESENT ILLNESS: This is a 71-year-old man known to our practice with several days of mid epigastric and chest discomfort, admitted to the emergency room yesterday. He has a mid epigastric burning type discomfort, but also a upper chest discomfort, which was different. It was not associated with shortness of breath. It was not pleuritic. It did not respond to nitroglycerin at home. He had seen Dr. Brown in the office and was prescribed ranitidine on Wednesday, this did not improve his symptoms. He does not describe typical exertional chest pain, dyspnea on exertion, orthopnea, PND, syncope, presyncope, lightheadedness, dizziness, vertigo, palpitations, edema, claudication, fever, chills, cough, sputum production or hemoptysis. There was no abdominal pain, nausea, vomiting, diarrhea, constipation or melena. PAST MEDICAL HISTORY: Notable for coronary artery disease with a remote myocardial infarction and coronary intervention in 1997. In 2014, he underwent cardiac catheterization, which disclosed medical coronary artery disease. In 11/2016, he was admitted with chest pain and subsequently underwent a nuclear stress test, apparently this was unremarkable and medical therapy was continued. He has a history of hypertension, hyperlipidemia, asthma, GERD, discogenic disease, back pains, and an episode of global amnesia. There is no history of rheumatic fever, congestive heart failure, arrhythmia, stroke, TIA, diabetes or gout. MEDICATIONS: At the time of admission include amlodipine, Horizant, amitriptyline, montelukast, Breo Ellipta, Percocet, ranitidine, aspirin, Lipitor, metoprolol, Xanax and Zanaflex. ALLERGIES: THERE ARE NO KNOWN MEDICATION ALLERGY. SOCIAL HISTORY: He lives at home. He is ambulatory. He does not smoke cigarettes. He does not drink alcohol. FAMILY HISTORY: Noncontributory. REVIEW OF SYSTEMS: A 10-point review of systems is otherwise unremarkable, except as noted above. PHYSICAL EXAMINATION: GENERAL: He is a well-developed male, in no acute distress, sitting on his bed, in 3R. VITAL SIGNS: He is in sinus rhythm, 60 beats per minute, afebrile, blood pressure 112/73, respirations 18 to 22, O2 sat 98 to 99% on room air. HEENT: Reveals no neck vein distention, thyromegaly or carotid bruits. Mucous membranes moist. Conjunctivae pink. NECK: Supple. CHEST: Lung garza clear. HEART: Reveals normal first and second heart sounds. ABDOMEN: Soft, bowel sounds present. No mass, organomegaly, tenderness, rebound, guarding, CVA tenderness or palpable abdominal aortic aneurysm. EXTREMITIES: Revealed no cyanosis, clubbing or edema. NEUROLOGICAL: He is awake, alert and oriented. SKIN: Warm and dry. No rash or cellulitis. LABORATORY AND IMAGING: Chest x-ray reveals no active pulmonary disease. EKG demonstrates regular sinus rhythm. LVH by voltage, inferior VT which is old. No change from the prior EKG. CBC is unremarkable. Electrolytes, BUN, creatinine, and liver function tests unremarkable. Three sets of cardiac enzymes are negative. BNP is 59.5, total cholesterol 150, LDL 85, triglycerides 80, HDL 50, lipase normal, TSH normal. Urinalysis is unremarkable. IMPRESSION: Robert Thompson is a 71-year-old man admitted with chest pain, but no evidence of myocardial infarction. The chest pain is atypical. It could be gastrointestinal in origin. It did not respond to nitrates. It is not exertional in nature, but it also did not respond to Zantac. Cardiac enzymes are negative. EKG did not show significant changes. PLAN: At this time, I would continue his current cardiac meds, including metoprolol, aspirin, Lipitor, and amlodipine. I will review his office cardiology records. I will track down his 11/2016 nuclear stress test to review it. He can be out of bed. He will have GI evaluation. He is getting ranitidine, Singulair, Pulmicort, Protonix, gabapentin, subcutaneous heparin, amitriptyline, Colace, and Brovana. Early discharge is anticipated with outpatient followup in our office with Dr. Fish. Charles Vergara MD [id number] [place]
[2017-05-07] MEDS ORDERED: GABAPENTIN ENACARBIL 600 MG PO SCH (22:00)
== END 2017-05-07 12:55 | disposition home or self-care (01) ==
LOC: ED 10:29 → ERH 12:34 → 3RNO 17:56
PROVIDERS: ADMIT Internal Medicine; ATTEND Internal Medicine
DX: R07.89 Other chest pain (principal); I25.10 Atherosclerotic heart disease of native coronary artery without angina pectoris; I10 Essential (primary) hypertension; E78.5 Hyperlipidemia, unspecified; K21.9 Gastro-esophageal reflux disease without esophagitis; I25.2 Old myocardial infarction; K29.50 Unspecified chronic gastritis without bleeding; G89.29 Other chronic pain; M54.5 Low back pain; F41.9 Anxiety disorder, unspecified; F32.9 Major depressive disorder, single episode, unspecified; M19.90 Unspecified osteoarthritis, unspecified site; J45.909 Unspecified asthma, uncomplicated; Z86.73 Personal history of transient ischemic attack (TIA), and cerebral infarction without residual deficits; Z95.5 Presence of coronary angioplasty implant and graft
CPT/HCPCS: 36415; 71045; 80053; 80061; 81003; 82550; 83036; 83615; 83690; 83735; 83880; 84100; 84443; 84484; 85025; 85027; 93005; 94640; 94760; 96372; 96374; 96375; 96376; 99285; C9113; G0378; J1644; J2270

== ENCOUNTER 2017-08-24 09:11 | Day surgery (SDC) | payer MEDICARE ==
[2017-08-18 08:52] VITALS: BMI 30.1
[2017-08-24] MEDS ORDERED: Propofol 10 mg/ml Inj (20 ML) ONE (11:10)
[2017-08-24] MEDS ORDERED: Sodium Chloride 0.9% 1,000 ML IV SCH (12:00)
[2017-08-24 12:23] VITALS: O2SAT 99
[2017-08-24 12:52] VITALS: BP 1254/75; PULSE 63; RESP 16; TEMP 97.5
== END 2017-08-24 13:50 | disposition home or self-care (01) ==
LOC: ENDO 09:11
PROVIDERS: ATTEND Internal Medicine Gastroenterology
DX: Z12.11 Encounter for screening for malignant neoplasm of colon (principal); D12.3 Benign neoplasm of transverse colon; K64.8 Other hemorrhoids; K57.30 Diverticulosis of large intestine without perforation or abscess without bleeding; I25.10 Atherosclerotic heart disease of native coronary artery without angina pectoris; E78.5 Hyperlipidemia, unspecified; M51.36 Other intervertebral disc degeneration, lumbar region; Z87.442 Personal history of urinary calculi; I10 Essential (primary) hypertension; J45.909 Unspecified asthma, uncomplicated; G47.30 Sleep apnea, unspecified; E78.00 Pure hypercholesterolemia, unspecified; I65.23 Occlusion and stenosis of bilateral carotid arteries; K21.9 Gastro-esophageal reflux disease without esophagitis; M19.90 Unspecified osteoarthritis, unspecified site; M48.00 Spinal stenosis, site unspecified; Z95.5 Presence of coronary angioplasty implant and graft; Z86.010 Personal history of colon polyps
CPT/HCPCS: 45380; 45381; 45385; 88305; J2001; J2704; J7040 ×2